=== PATIENT | male | born 1950 | race Caucasian/White ===

== ENCOUNTER 2021-08-14 08:08 | Outpatient (CLI) | payer OTHER | END 2021-08-14 08:09 | disposition home or self-care (01) | LOC: CSHULT 08:08 | DX: B19.10 Unspecified viral hepatitis B without hepatic coma (principal); Z13.818 Encounter for screening for other digestive system disorders; K80.20 Calculus of gallbladder without cholecystitis without obstruction | CPT/HCPCS: 76705 ==